=== PATIENT | female | born 1965 | race Caucasian/White ===

== ENCOUNTER → 2016-09-18 | Outpatient (CLI) | payer OTHER ==
[~2016-09-18] MED LIST: ADVAIR 250-501 EACH INH; CLARITIN 10MG T10 MG PO; CLOTRIMAZOLE 1%; ESCITALOPRAM OX10 MG PO; ESTRADERM 0.05 M1 EA TD; HYDROCODON-ACE1 EAC2 PO; ISOSORBIDE DINI30 MG PO; KETOTIFEN FUMARA5 ML OP; METOPROLOL TART25 MG PO; NITROSTAT0.4 MG SL; NORVASC 5 MG TAB5 MG PO; OXYBUTYNIN CHLOR5 MG PO; PANTOPRAZOLE SO40 MG PO; RANITIDINE HCL150 MG PO; SINGULAIR10 MG PO; SUMATRIPTAN SUC50 MG PO; TIZANIDINE HCL2 MG PO; TOPAMAX50 MG PO; VENTOLIN HFA INH; VITAMIN D32000 UNIT PO; ZOCOR10 MG PO
== END ==
LOC: HEART 5 07:09
DX: I25.10 Atherosclerotic heart disease of native coronary artery without angina pectoris (principal)
CPT/HCPCS: 78452; 93017; A9502; J2785

== ENCOUNTER → 2016-10-21 | Outpatient (CLI) | payer OTHER | LOC: KOH-I 13:20 | DX: R06.02 Shortness of breath (principal) | CPT/HCPCS: 71020 ==

== ENCOUNTER → 2016-11-07 | Outpatient (CLI) | payer OTHER | LOC: MAMO 08:00 | DX: R92.8 Other abnormal and inconclusive findings on diagnostic imaging of breast (principal); Z90.710 Acquired absence of both cervix and uterus; Z79.890 Hormone replacement therapy | CPT/HCPCS: G0206 ==

== ENCOUNTER → 2016-11-21 | Outpatient (CLI) | payer OTHER | LOC: RAD 14:30 | DX: R92.0 Mammographic microcalcification found on diagnostic imaging of breast (principal) | CPT/HCPCS: 19081; G0206; J7050 ==

== ENCOUNTER → 2016-12-19 | Outpatient (CLI) | payer OTHER | LOC: RAD 11:52 | DX: R92.0 Mammographic microcalcification found on diagnostic imaging of breast (principal) | CPT/HCPCS: 19081; G0206; J7050 ==

== ENCOUNTER → 2020-08-08 | Outpatient (CLI) | payer OTHER ==
[~2020-08-08] MED LIST changes: +ACID REDUCER10 MG PO; +BASAGLAR K100 UNIT/1 SC; -ESTRADERM 0.05 M1 EA TD; +ESTRADERM TD; +GABAPENTIN400 MG PO; +IMDUR ER TAB 3030 MG PO; -ISOSORBIDE DINI30 MG PO; +JANUVIA100 MG PO; +JARDIANCE10 MG PO; +MEDROL4 MG PO; +PREDNISONE20 MG PO; +TESSALON PERLE100 MG PO; +ZITHROMAX500 MG PO
== END ==
LOC: MRI 14:11
DX: M54.2 Cervicalgia (principal); G89.29 Other chronic pain; M50.23 Other cervical disc displacement, cervicothoracic region; Z98.890 Other specified postprocedural states
CPT/HCPCS: 72141

== ENCOUNTER → 2020-08-14 | Outpatient (CLI) | payer OTHER | LOC: KOH-I 13:19 | DX: M79.671 Pain in right foot (principal); M19.071 Primary osteoarthritis, right ankle and foot | CPT/HCPCS: 73630 ==

== ENCOUNTER 2020-08-24 14:03 | Emergency (ER) | payer OTHER ==
[~2020-08-24 14:03] MED LIST changes: -MEDROL4 MG PO; -TESSALON PERLE100 MG PO; -ZITHROMAX500 MG PO
[2020-08-24 17:12] LABS: HEMOGLOBIN 16.3 gm/dl (12.3-15.3); RED BLOOD COUNT 5.19 M/UL (4.00-5.10); WHITE BLOOD COUNT 3.9 K/UL (4.5-11.0)
[2020-08-24 17:38] LABS: BUN/CREATININE RATIO 24 (0-10)
[2020-08-24] MEDS ORDERED: ZITHROMAX500 MG PO (20:02)
[2020-08-24] MEDS ORDERED: MEDROL4 MG PO (20:02)
[2020-08-24] MEDS ORDERED: TESSALON PERLE100 MG PO (20:02)
== END 2020-08-24 20:16 | disposition home or self-care (01) ==
LOC: ER1 14:03
PROVIDERS: Preventive Medicine Occupational Medicine
DX: U07.1 COVID-19 (principal); I10 Essential (primary) hypertension; E11.9 Type 2 diabetes mellitus without complications; J45.909 Unspecified asthma, uncomplicated; Z88.2 Allergy status to sulfonamides
CPT/HCPCS: 0240U; 36415; 71045; 80053; 81001; 82550; 82553; 83605; 83690; 83874; 83880; 84484; 85025; 85652; 86140; 87086; 93005; 96374; 96375; 99285; J1100; J2405

== ENCOUNTER 2020-08-27 14:20 | Emergency (ER) | payer OTHER ==
[~2020-08-27] VITALS: Ht 170.2 cm; Wt 123.8 kg
[~2020-08-27 14:20] MED LIST changes: +MEDROL4 MG PO; +TESSALON PERLE100 MG PO; +ZITHROMAX500 MG PO
[2020-08-27 15:08] LABS: HEMOGLOBIN 15.4 gm/dl (12.3-15.3); RED BLOOD COUNT 4.94 M/UL (4.00-5.10); WHITE BLOOD COUNT 4.7 K/UL (4.5-11.0)
== END 2020-08-27 18:20 | disposition home or self-care (01) ==
LOC: ER1 14:20
PROVIDERS: Emergency Medicine
DX: U07.1 COVID-19 (principal); I10 Essential (primary) hypertension; E11.9 Type 2 diabetes mellitus without complications; J45.909 Unspecified asthma, uncomplicated; Z88.2 Allergy status to sulfonamides
CPT/HCPCS: 36600; 71045; 80053; 82550; 82553; 82803; 83605; 83690; 83735; 83874; 83880; 84100; 84484; 85025; 85610; 85730; 87040; 93005; 99285; M0239

== ENCOUNTER → 2020-09-19 | Outpatient (CLI) | payer OTHER | LOC: MAMO 09-03 10:00 | DX: Z12.31 Encounter for screening mammogram for malignant neoplasm of breast (principal); Z90.710 Acquired absence of both cervix and uterus | CPT/HCPCS: 77063; 77067 ==

== ENCOUNTER → 2021-03-05 | Outpatient (CLI) | payer OTHER | LOC: EXRD 08:00 | DX: K76.0 Fatty (change of) liver, not elsewhere classified (principal) | CPT/HCPCS: 76705 ==

== ENCOUNTER → 2021-03-11 | Outpatient (CLI) | payer OTHER | LOC: MRI 03-05 15:30 | DX: M54.2 Cervicalgia (principal); M51.37 Other intervertebral disc degeneration, lumbosacral region; M48.07 Spinal stenosis, lumbosacral region | CPT/HCPCS: 36415; 72158; 82565; 84520; A9577 ==

== ENCOUNTER → 2021-07-11 | Outpatient (CLI) | payer OTHER ==
[2021-07-12 07:10] LABS: HEMOGLOBIN A1C 6.3 % (4.8-5.6)
== END ==
LOC: LAB 09:40
PROVIDERS: Nurse Practitioner Family
DX: M54.16 Radiculopathy, lumbar region (principal)
CPT/HCPCS: 36415; 83036; 87081

== ENCOUNTER → 2021-08-02 | Outpatient (CLI) | payer OTHER | LOC: EMI 15:33 | DX: M51.34 Other intervertebral disc degeneration, thoracic region (principal); M50.23 Other cervical disc displacement, cervicothoracic region; M51.24 Other intervertebral disc displacement, thoracic region; M48.03 Spinal stenosis, cervicothoracic region | CPT/HCPCS: 72146 ==

== ENCOUNTER → 2021-08-06 | Outpatient (CLI) | payer OTHER | LOC: EXRD 14:28 | DX: U07.1 COVID-19 (principal); I51.7 Cardiomegaly | CPT/HCPCS: 71046 ==

== ENCOUNTER → 2021-08-08 | Outpatient (CLI) | payer OTHER ==
[~2021-08-08] VITALS: Ht 170.2 cm; Wt 113.4 kg
== END ==
LOC: EROP 12:20
DX: U07.1 COVID-19 (principal); Z23 Encounter for immunization; E11.9 Type 2 diabetes mellitus without complications; I10 Essential (primary) hypertension; Z88.2 Allergy status to sulfonamides
CPT/HCPCS: M0247; Q0247

== ENCOUNTER → 2021-09-19 | Outpatient (CLI) | payer OTHER ==
[2021-09-19 10:25] LABS: HEMOGLOBIN 15.2 gm/dl (12.3-15.3); RED BLOOD COUNT 5.04 M/UL (4.00-5.10)
[2021-09-19 11:02] LABS: BUN/CREATININE RATIO 25 (0-10)
[2021-09-20 08:17] LABS: ALPHA-1-ANTITRYPSIN, SERUM 145 mg/dL (101-187); VITAMIN D, 25-HYDROXY 46.2 ng/mL (30.0-100.0)
[2021-09-20 09:17] LABS: HBSAG SCREEN Negative (Negative); HEP A AB, IGM Negative (Negative); HEP B CORE AB, IGM Negative (Negative); HEP C VIRUS AB <0.1 (0.0-0.9)
[2021-09-20 11:17] LABS: CREATININE, URINE 126.5 mg/dL (Not Estab.)
[2021-09-20 16:13] LABS: MITOCHONDRIAL (M2) ANTIBODY <20.0 Units (0.0-20.0)
== END ==
LOC: LAB 09:28
PROVIDERS: Internal Medicine Gastroenterology
DX: E11.9 Type 2 diabetes mellitus without complications (principal); R94.5 Abnormal results of liver function studies; E55.9 Vitamin D deficiency, unspecified; E03.9 Hypothyroidism, unspecified; E78.5 Hyperlipidemia, unspecified; K21.9 Gastro-esophageal reflux disease without esophagitis; Z79.899 Other long term (current) drug therapy
CPT/HCPCS: 36415; 80053; 80061; 80074; 82043; 82103; 82570; 82607; 82728; 83540; 83550; 83735; 84439; 84443; 85027; 86038

== ENCOUNTER → 2021-10-01 | Outpatient (CLI) | payer OTHER | LOC: HEART 5 07:42 | DX: R07.9 Chest pain, unspecified (principal) | CPT/HCPCS: 93306 ==

== ENCOUNTER → 2021-10-31 | Outpatient (CLI) | payer OTHER | LOC: EXRD 15:01 | DX: M79.621 Pain in right upper arm (principal) | CPT/HCPCS: 73030 ==

== ENCOUNTER → 2021-12-03 | Outpatient (CLI) | payer OTHER ==
[2021-12-04 12:11] LABS: IMMUNOGLOBULIN G, QN, SERUM 697 mg/dL (586-1602)
[2021-12-04 13:11] LABS: LIVER-KIDNEY MICROSOMAL AB <1.0 Units (0.0-20.0)
[2021-12-04 14:12] LABS: ACTIN (SMOOTH MUSCLE) ANTIBODY 3 Units (0-19)
== END ==
LOC: LAB 11:55
PROVIDERS: Internal Medicine Gastroenterology
DX: K75.81 Nonalcoholic steatohepatitis (NASH) (principal)
CPT/HCPCS: 36415; 82784; 83516; 86376

== ENCOUNTER → 2021-12-10 | Outpatient (CLI) | payer OTHER | LOC: MRI 13:48 | DX: R22.42 Localized swelling, mass and lump, left lower limb (principal); I10 Essential (primary) hypertension; E11.9 Type 2 diabetes mellitus without complications | CPT/HCPCS: 36415; 73720; 82565; 84520; A9577 ==

== ENCOUNTER → 2022-02-12 | Outpatient (CLI) | payer OTHER | LOC: US 07:48 | DX: K75.81 Nonalcoholic steatohepatitis (NASH) (principal) | CPT/HCPCS: 76705 ==